=== PATIENT | female | born 2005 | race Hispanic/Latino ===

== ENCOUNTER 2023-06-21 14:02 | Emergency (ER) | payer OTHER ==
[2023-06-21] MEDS ORDERED: Bacitracin 1 PK ONE (15:13)
== END 2023-06-21 15:21 | disposition home or self-care (01) ==
LOC: ERS 14:02
DX: S61.412D Laceration without foreign body of left hand, subsequent encounter (principal); X58.XXXD Exposure to other specified factors, subsequent encounter